=== PATIENT | female | born 1990 | race Caucasian/White ===

== ENCOUNTER → 2016-05-29 | Outpatient (REF) | payer OTHER | LOC: M SFHCWAGY 13:21 | PROVIDERS: ATTEND Nurse Practitioner Women's Health | DX: Z12.4 Encounter for screening for malignant neoplasm of cervix (principal); R87.610 Atypical squamous cells of undetermined significance on cytologic smear of cervix (ASC-US); N87.1 Moderate cervical dysplasia ==

== ENCOUNTER → 2017-03-07 | Outpatient (REF) | payer OTHER ==
[2017-03-07 17:48] LABS: ALBUMIN 4.5 GM/DL (3.2-5.2); ALBUMIN/GLOBULIN RATIO 1.45 (1.00-1.93); ALKALINE PHOSPHATASE 63 U/L (45-117); ALT/SGPT 23 U/L (12-78); ANION GAP 5 MEQ/L (8-16); AST/SGOT 10 U/L (7-37); BILIRUBIN,TOTAL 3.4 MG/DL (0.2-1.0); BLOOD UREA NITROGEN 10 MG/DL (7-18); CALCIUM LEVEL 9.1 MG/DL (8.5-10.1); CARBON DIOXIDE LEVEL 30 MEQ/L (21-32); CHLORIDE LEVEL 105 MEQ/L (98-107); CREATININE FOR GFR 0.71 MG/DL (0.55-1.02); FREE T4 1.17 NG/DL (0.76-1.46); GLOMERULAR FILTRATION RATE > 60.0 (>60); GLUCOSE, FASTING 93 MG/DL (70-105); POTASSIUM SERUM 3.7 MEQ/L (3.5-5.1); SODIUM LEVEL 140 MEQ/L (136-145); TOTAL PROTEIN 7.6 GM/DL (6.4-8.2)
[2017-03-07 18:30] LABS: BASO % 0.7 % (0.0-1.0); EOS # 0.1 10^3/uL (0.0-0.50); EOS % 1.3 % (0.0-3.0); IMMATURE GRANULOCYTE % 0.2 % (0-0); LYMPH # 2.4 10^3/uL (1.5-6.5); LYMPH % 39.2 % (24.0-44.0); MEAN CORPUSCULAR HEMOGLOBIN 30.4 pg (27.0-33.0); MEAN CORPUSCULAR HGB CONC 34.4 g/dl (32.0-36.5); MEAN CORPUSCULAR VOLUME 88.3 fl (80.0-96.0); MONO # 0.5 10^3/uL (0.0-0.8); NEUTROPHILS # 3.1 10^3/uL (1.8-7.7); NEUTROPHILS % 50.6 % (36.0-66.0); PLATELET COUNT, AUTOMATED 243 10^3/uL (150-450); RED CELL DISTRIBUTION WIDTH 12.6 % (11.5-14.5); WHITE BLOOD COUNT 6.1 10^3/uL (4.0-10.0)
[2017-03-08 12:00] LABS: GAMMA GLUTAMYLTRANSPEPTIDASE 21 U/L (5-55)
== END ==
LOC: M SFHCCLAY 10:15
PROVIDERS: ATTEND Nurse Practitioner Family
DX: K59.00 Constipation, unspecified (principal); F31.9 Bipolar disorder, unspecified

== ENCOUNTER → 2017-03-18 | Outpatient (REF) | payer OTHER | LOC: M SFHCLERA 09:46 | PROVIDERS: ATTEND Physician Assistant | DX: J02.9 Acute pharyngitis, unspecified (principal) ==

== ENCOUNTER → 2017-03-26 | Outpatient (CLI) | payer OTHER ==
--- NOTE | 2017-03-27 07:41 | REP ---
LIMITED ABDOMINAL ULTRASOUND: CLINICAL HISTORY: Elevated bilirubin levels. TECHNIQUE: Real-time grayscale ultrasound examination using curved array transducer. FINDINGS: The liver and pancreas are normal in contour, size and echogenicity without focal hepatic or pancreatic lesions identified. The gallbladder is normal and without gallstones, wall thickening or pericholecystic fluid. No biliary ductal dilatation is appreciated and the common bile duct measures 2.9 mm in diameter. The right kidney is normal in reniform shape and hydronephrosis without nephrolithiasis and measures 10.6 x 4.1 x 3.9 cm. No ascites. IMPRESSION: Normal limited abdominal ultrasound. Signed by Kyler Goode MD 03/30/2017 06:53 A
== END ==
LOC: M RAD 08:29
PROVIDERS: ATTEND Nurse Practitioner Family
DX: R17 Unspecified jaundice (principal)

== ENCOUNTER 2017-07-13 09:02 | Emergency (ER) | payer OTHER | END 2017-07-13 10:35 | disposition home or self-care (01) | LOC: M ED 09:02 | DX: M54.12 Radiculopathy, cervical region (principal); S46.911A Strain of unspecified muscle, fascia and tendon at shoulder and upper arm level, right arm, initial encounter; X50.9XXA Other and unspecified overexertion or strenuous movements or postures, initial encounter; Y92.018 Other place in single-family (private) house as the place of occurrence of the external cause; J30.89 Other allergic rhinitis; Z88.8 Allergy status to other drugs, medicaments and biological substances; F17.210 Nicotine dependence, cigarettes, uncomplicated | CPT/HCPCS: 73030 ==

== ENCOUNTER → 2018-07-03 | Outpatient (REF) | payer OTHER ==
[~2018-07-03] MED LIST: IBUP-1022 PO; ROBA500T PO
[2018-07-03 14:51] LABS: CHLAMYDIA DNA AMPLIFICATION NEGATIVE (NEGATIVE); GC DNA AMPLIFICATION NEGATIVE (NEGATIVE)
== END ==
LOC: M LAB REF 12:49
PROVIDERS: ATTEND Advanced Practice Midwife
DX: Z11.3 Encounter for screening for infections with a predominantly sexual mode of transmission (principal)

== ENCOUNTER → 2018-07-03 | Outpatient (REF) | payer OTHER | LOC: M LAB REF 13:18 | PROVIDERS: ATTEND Advanced Practice Midwife | DX: Z12.4 Encounter for screening for malignant neoplasm of cervix (principal); N87.0 Mild cervical dysplasia ==

== ENCOUNTER 2020-04-22 10:38 | Emergency (ER) | payer OTHER ==
[~2020-04-22] VITALS: Ht 165.1 cm; Wt 54.2 kg
[2020-04-22] MEDS ORDERED: SPORCAP (10:48)
[2020-04-22] MEDS ORDERED: AZIT-12 (10:48)
[2020-04-22] MEDS ORDERED: ALBU8.5H (10:48)
--- NOTE | 2020-04-22 11:17 | REP ---
INDICATION: sob COMPARISON: 12/03/2010 TECHNIQUE: PA and lateral. FINDINGS: Significant right lower lobe airspace disease and consolidations consistent with acute pneumonia and COVID-19 pulmonary disease. No effusion. No pneumothorax. Mediastinum and cardiac silhouette normal. IMPRESSION: Right mid to lower lobe airspace disease compatible with pneumonia and COVID-19 pulmonary disease. <Electronically signed by Kyler Goode > 04/22/20 [id number]
[2020-04-22 12:55] LABS: RSV AMPLIFICATION NEGATIVE (NEGATIVE)
[2020-04-22 13:35] VITALS: BP 108/72
== END 2020-04-22 13:37 | disposition home or self-care (01) ==
LOC: M ED 10:38
DX: J18.9 Pneumonia, unspecified organism (principal); Z88.5 Allergy status to narcotic agent; Z88.8 Allergy status to other drugs, medicaments and biological substances; F17.210 Nicotine dependence, cigarettes, uncomplicated

== ENCOUNTER → 2020-05-04 | Outpatient (REF) | payer OTHER ==
[~2020-05-04] MED LIST changes: +ALBU8.5H; +AZIT-12; +SPORCAP
[2020-05-04 13:32] LABS: BASO % 0.6 % (0.0-1.0); EOS # 0.2 10^3/uL (0.0-0.5); EOS % 2.5 % (0.0-3.0); HEMATOCRIT 38.5 % (36.0-47.0); HEMOGLOBIN 12.4 g/dl (12.0-15.5); LYMPH # 1.6 10^3/uL (1.5-5.0); LYMPH % 24.7 % (24.0-44.0); MEAN CORPUSCULAR HEMOGLOBIN 29.7 pg (27.0-33.0); MEAN CORPUSCULAR HGB CONC 32.2 g/dl (32.0-36.5); MEAN CORPUSCULAR VOLUME 92.1 fl (80.0-96.0); MONO # 0.4 10^3/uL (0.0-0.8); MONO % 6.8 % (0.0-5.0); NEUTROPHILS # 4.2 10^3/uL (1.5-8.5); NEUTROPHILS % 65.1 % (36.0-66.0); PLATELET COUNT, AUTOMATED 276 10^3/uL (150-450); RED BLOOD COUNT 4.18 10^6/uL (4.00-5.40); WHITE BLOOD COUNT 6.5 10^3/uL (4.0-10.0)
[2020-05-04 14:02] LABS: ERYTHROCYTE SEDIMENTATION RATE 27 mm/hr (0-20)
[2020-05-04 16:13] LABS: ALBUMIN 3.5 GM/DL (3.2-5.2); ALT/SGPT 18 U/L (12-78); BILIRUBIN,TOTAL 0.9 MG/DL (0.2-1.0); BLOOD UREA NITROGEN 7 MG/DL (7-18); CALCIUM LEVEL 8.6 MG/DL (8.5-10.1); CARBON DIOXIDE LEVEL 28 MEQ/L (21-32); CHLORIDE LEVEL 108 MEQ/L (98-107); CREATININE FOR GFR 0.57 MG/DL (0.55-1.30); GLOMERULAR FILTRATION RATE > 60.0 (>60); GLUCOSE, FASTING 88 MG/DL (70-100); POTASSIUM SERUM 4.3 MEQ/L (3.5-5.1); SODIUM LEVEL 140 MEQ/L (136-145); TOTAL PROTEIN 6.6 GM/DL (6.4-8.2)
[2020-05-04 16:14] LABS: C REACTIVE PROTEIN QUANTITATIV 1.77 MG/DL (0.00-0.30)
[2020-05-04 17:11] LABS: HEPATITIS C VIRUS ABY INDEX < 0.0 INDEX (<0.8); HIV 1&2 SCREEN CENTAUR NEGATIVE (NEGATIVE)
== END ==
LOC: M SFHCPLAZ 10:11
PROVIDERS: ATTEND Internal Medicine Infectious Disease
DX: B39.2 Pulmonary histoplasmosis capsulati, unspecified (principal); L81.8 Other specified disorders of pigmentation

== ENCOUNTER → 2020-06-28 | Outpatient (REF) | payer OTHER ==
[2020-06-28 14:04] LABS: BASO % 0.9 % (0.0-1.0); EOS # 0.1 10^3/uL (0.0-0.5); EOS % 2.6 % (0.0-3.0); HEMATOCRIT 45.5 % (36.0-47.0); HEMOGLOBIN 14.9 g/dl (12.0-15.5); LYMPH # 1.5 10^3/uL (1.5-5.0); MEAN CORPUSCULAR HEMOGLOBIN 29.7 pg (27.0-33.0); MEAN CORPUSCULAR HGB CONC 32.7 g/dl (32.0-36.5); MEAN CORPUSCULAR VOLUME 90.6 fl (80.0-96.0); MONO # 0.4 10^3/uL (0.0-0.8); MONO % 8.1 % (2.0-8.0); NEUTROPHILS # 2.5 10^3/uL (1.5-8.5); NEUTROPHILS % 55.2 % (36.0-66.0); PLATELET COUNT, AUTOMATED 176 10^3/uL (150-450); RED BLOOD COUNT 5.02 10^6/uL (4.00-5.40); WHITE BLOOD COUNT 4.6 10^3/uL (4.0-10.0)
[2020-06-28 14:37] LABS: ALBUMIN 4.5 GM/DL (3.2-5.2); ALT/SGPT 21 U/L (12-78); BILIRUBIN,TOTAL 2.1 MG/DL (0.2-1.0); BLOOD UREA NITROGEN 15 MG/DL (7-18); CARBON DIOXIDE LEVEL 28 MEQ/L (21-32); CHLORIDE LEVEL 107 MEQ/L (98-107); CREATININE FOR GFR 0.76 MG/DL (0.55-1.30); GLOMERULAR FILTRATION RATE > 60.0 (>60); GLUCOSE, FASTING 125 MG/DL (70-100); POTASSIUM SERUM 4.5 MEQ/L (3.5-5.1); SODIUM LEVEL 138 MEQ/L (136-145); TOTAL PROTEIN 7.5 GM/DL (6.4-8.2)
[2020-06-28 14:53] LABS: ERYTHROCYTE SEDIMENTATION RATE 2 mm/hr (0-20)
== END ==
LOC: M SFHCPLAZ 09:39
PROVIDERS: ATTEND Internal Medicine Infectious Disease
DX: B39.2 Pulmonary histoplasmosis capsulati, unspecified (principal)

== ENCOUNTER 2021-04-07 14:58 | Emergency (ER) | payer OTHER ==
[~2021-04-07] VITALS: Ht 165.1 cm; Wt 54.8 kg
[2021-04-07 14:59] VITALS: BP 126/83
== END 2021-04-07 18:48 | disposition left against medical advice (07) ==
LOC: M ED 14:58
DX: Z53.29 Procedure and treatment not carried out because of patient's decision for other reasons (principal)

== ENCOUNTER → 2022-04-27 | Outpatient (REF) | payer OTHER ==
[~2022-04-27] MED LIST changes: +SPOR1CAP2; -SPORCAP
[2022-05-02 23:07] LABS: CALPROTECTIN STOOL <16 ug/g (0-120); FATS NEUTRAL Normal (.); FATS TOTAL Normal (.); PANCREATIC ELASTASE STOOL >500 (>200)
== END ==
LOC: M LAB REF 10:41
PROVIDERS: ATTEND Internal Medicine Gastroenterology
DX: R19.7 Diarrhea, unspecified (principal)

== ENCOUNTER → 2022-05-04 | Outpatient (CLI) | payer OTHER | LOC: M LABSMTC 10:11 | PROVIDERS: ATTEND Anesthesiology | DX: Z01.812 Encounter for preprocedural laboratory examination (principal); Z11.52 Encounter for screening for COVID-19 ==

== ENCOUNTER 2022-05-09 08:50 | Day surgery (SDC) | payer OTHER ==
[~2022-05-09] VITALS: Ht 165.1 cm; Wt 54.9 kg
[~2022-05-09 08:50] MED LIST changes: +NS 1,000 ML IV ONE
[2022-05-09] MEDS ORDERED: propofoL 200 MG/20 ML VIAL As Ordered ONE ×2 (10:30→10:42)
[2022-05-09] MEDS ORDERED: LIDOCAINE 2% 100MG/5ML SDV (FOR ANES.) As Ordered ONE (10:30)
[2022-05-09] MEDS ORDERED: MIDAZOLAM INJ 2MG/2ML VIAL As Ordered ONE (10:30)
[2022-05-09 11:10] VITALS: BP 109/63
== END 2022-05-09 11:22 | disposition home or self-care (01) ==
LOC: M OPP 08:50
PROVIDERS: ATTEND Internal Medicine Gastroenterology
DX: K64.4 Residual hemorrhoidal skin tags (principal); K64.8 Other hemorrhoids; K52.9 Noninfective gastroenteritis and colitis, unspecified; Z88.5 Allergy status to narcotic agent; Z88.6 Allergy status to analgesic agent; F17.200 Nicotine dependence, unspecified, uncomplicated
CPT/HCPCS: 45380; 88305; J2250